=== PATIENT | female | born 1945 | race Caucasian/White ===

== ENCOUNTER 2017-03-24 09:22 | Emergency (ER) | payer MEDICAID, MEDICARE ==
[2017-03-24 09:49] VITALS: BP 196/87; PULSE 83; RESP 20; TEMP 97.8
--- NOTE | 2017-03-24 10:46 | ED ---
General Adult HPI - General Chief complaint: ENT Stated complaint: Sore Throat Time Seen by Provider: 03/24/17 09:58 Source: patient, RN notes reviewed Mode of arrival: ambulatory Limitations: no limitations - History of Present Illness Initial comments: Patient 71-year-old female who presents emergency room today with chief complaint of increased sinus congestion over the last week. Patient does admit to yellow drainage. States it's been getting worse over the last day. Some sore throat with some pressure to ears bilaterally. Patient states that is been some yellow drainage. She has mid to headache over the sinuses. Denies any other complaints or symptoms. Does admit to seasonal ALLERGIES. States appetite home. Patient denies any recent fever, chills, shortness of breath, chest pain, back pain, abdominal pain, nausea or vomiting, numbness or tingling , dysuria or hematuria, constipation or diarrhea, visual changes, or any other complaints. - Related Data Previous Rx's Medication Instructions Recorded Amoxicillin/Potassium Clav 1 each PO Q12HR #20 tab 03/24/17 [Augmentin 875-125 Tablet] Allergies Allergy/AdvReac Type Severity Reaction Status Date / Time Sulfa (Sulfonamide Allergy Unknown Verified 03/24/17 10:06 Antibiotics) Review of Systems ROS Statement: Those systems with pertinent positive or pertinent negative responses have been documented in the HPI. ROS Other: All systems not noted in ROS Statement are negative. Past Medical History Past Medical History: No Reported History History of Any Multi-Drug Resistant Organisms: None Reported Past Surgical History: Hysterectomy Past Psychological History: No Psychological Hx Reported Smoking Status: Current every day smoker Past Alcohol Use History: Rare Past Drug Use History: None Reported General Exam - General Exam Comments Initial Comments: General: The patient is awake and alert, in no distress, and does not appear acutely ill. Eye: Pupils are equal, round and reactive to light, extra-ocular movements are intact. No nystagmus. There is normal conjunctiva bilaterally. No signs of icterus. Ears, nose, mouth and throat: There are moist mucous membranes and no oral lesions. TMs clear bilaterally. Patient does have tenderness over both frontal and maxillary sinuses. Neck: The neck is supple, there is no tenderness or JVD. Cardiovascular: There is a regular rate and rhythm. No murmur, rub or gallop is appreciated. Respiratory: Lungs are clear to auscultation, respirations are non-labored, breath sounds are equal. No wheezes, stridor, rales, or rhonchi.: Musculoskeletal: Normal ROM, no tenderness. Strength 5/5. Sensation intact. Pulses equal bilaterally 2+. Neurological: A&O x 3. CN II-XII intact, There are no obvious motor or sensory deficits. Coordination appears grossly intact. Speech is normal. Skin: Skin is warm and dry and no rashes or lesions are noted. Psychiatric: Cooperative, appropriate mood & affect, normal judgment. Limitations: no limitations Course Vital Signs 03/24/17 09:46 Temperature 97.8 F Pulse Rate 83 Respiratory 20 Rate Blood Pressure 196/87 O2 Sat by Pulse 99 Oximetry Disposition Clinical Impression: Acute sinusitis Disposition: HOME SELF-CARE Condition: Good Instructions: Sinusitis (ED) Additional Instructions: Please use medication as discussed. Please follow-up with family doctor in the next 2 days of symptoms have not improved. Please return to emergency room if the symptoms increase or worsen or for any other concerns. Prescriptions: Amoxicillin/Potassium Clav [Augmentin 875-125 Tablet] 1 each PO Q12HR #20 tab Referrals: Cam Adam MD [Primary Care Provider] - 1-2 days Time of Disposition: 10:45
== END 2017-03-24 10:56 | disposition home or self-care (01) ==
LOC: EC 09:22
DX: J01.90 Acute sinusitis, unspecified (principal); F17.200 Nicotine dependence, unspecified, uncomplicated; Z88.2 Allergy status to sulfonamides
CPT/HCPCS: 99282

== ENCOUNTER → 2018-11-01 | Outpatient (CLI) | payer MEDICARE ==
[2018-11-01 10:55] LABS: Basophils # (A) 0.1 k/uL (0-0.2); Basophils % (A) 1 %; Eosinophils # (A) 0.1 k/uL (0-0.7); Eosinophils % (A) 1 %; HCT 49.2 % (34.0-46.0); HGB 15.8 gm/dL (11.4-16.0); Lymphocytes # (A) 1.4 k/uL (1.0-4.8); Lymphocytes % (A) 18 %; MCH 31.2 pg (25.0-35.0); MCHC 32.2 g/dL (31.0-37.0); MCV 96.7 fL (80.0-100.0); Mean Platelet Volume 6.8; Monocytes # (A) 0.5 k/uL (0-1.0); Monocytes % (A) 6 %; Neutrophils # (A) 5.7 k/uL (1.3-7.7); Neutrophils % (A) 73 %; Platelet Count 304 k/uL (150-450); RBC 5.09 m/uL (3.80-5.40); RDW 15.7 % (11.5-15.5); WBC 7.8 k/uL (3.8-10.6)
[2018-11-01 16:50] LABS: Albumin 4.6 g/dL (3.80-4.90); Albumin/Globulin Ratio 2.71 (1.60-3.17); Anion Gap 11.4 mmol/L (4.00-12.00); Calcium 9.6 mg/dL (8.7-10.3); Carbon Dioxide 26.6 mmol/L (21.6-31.8); Globulin 1.7 g/dL (1.6-3.3); LDL Cholesterol,Calculated 150.2 mg/dL (0.0-131.0); Potassium 4.3 mmol/L (3.5-5.5); Total Bilirubin 0.6 mg/dL (0.2-1.2); Total Protein 6.3 g/dL (6.2-8.2); VLDL Calculation 21.8 mg/dL (5.00-40.00)
[2018-11-01 16:58] LABS: T4, Free (Free Thyroxine) 1.3 ng/dL (0.80-1.80)
== END ==
LOC: LABWHC1 10:13
PROVIDERS: ATTEND Internal Medicine
DX: E78.5 Hyperlipidemia, unspecified (principal); R63.4 Abnormal weight loss; M19.90 Unspecified osteoarthritis, unspecified site
CPT/HCPCS: 36415; 80053; 80061; 84439; 84443; 85025

== ENCOUNTER 2021-03-07 17:35 | Emergency (ER) | payer MEDICARE ==
[2021-03-07 18:25] VITALS: RESP 18
--- NOTE | 2021-03-07 18:26 | ED ---
General Adult HPI <AntoniajosedoraMagdaleno rubio - Last Filed: 03/07/21 18:24> <Sam Quinonez - Last Filed: 03/07/21 23:16> - General Stated complaint: fall, wrist pain - History of Present Illness Initial comments: 75-year-old female presenting to emergency Department with a chief complaint of a fall. This occurred about 10 AM this morning. Patient reports she was getting her getting her laundry when she felt a sudden flush feeling and went onto the ground. Patient states she lost consciousness and there was a head injury on the left parietal region of the head. Patient also reports pain in the left wrist with overlying ecchymosis. Reports limited range of motion with flexion and extension due to pain. Also reports exacerbation of pain with wrist extension. She denies any associated chest finished her course of breath. Denies any blurry vision headaches, onset of weakness and paresthesias at this time. (Jorgito Cain) Patient presents to the ED for evaluation status post syncopal episode and left wrist injury at about 10 AM this morning. Patient states that she was taking some clothes out of her dryer when she became lightheaded. Patient states that she tried to get to her bench to sit down, but she had a syncopal episode and fell prior to getting there. Patient states that she thinks that she hit her head on the ground when she fell, but she denies having a headache. Patient states that she has had left wrist pain and bruising since falling this morning. Patient denies any other injury or site of pain. Patient states that she has had similar syncopal episodes in the past. Patient denies feeling lightheaded or dizzy currently. Patient denies fever or chills, headache, focal numbness/weakness/neuro deficit, visual changes, neck/back/lower extremity pain, chest pain, dyspnea, cough or cold symptoms, palpitations, abdominal pain, nausea/vomiting/diarrhea, bloody or melanotic stool, dysuria or urinary sy mptoms, or any other symptoms or complaints. Patient denies anticoagulant medication use. (Sam Quinonez) - Related Data Home Medications Medication Instructions Recorded Confirmed Acetaminophen Tab [Tylenol Tab] 500 mg PO Q6H PRN 03/07/21 03/07/21 Allergies Allergy/AdvReac Type Severity Reaction Status Date / Time Sulfa (Sulfonamide Allergy Unknown Verified 03/07/21 18:50 Antibiotics) Review of Systems ROS Other: All systems not noted in ROS Statement are negative. <AntMagdalenoo - Last Filed: 03/07/21 18:24> ROS Other: All systems not noted in ROS Statement are negative. <Sam Quinonez - Last Filed: 03/07/21 23:16> ROS Statement: Those systems with pertinent positive or pertinent negative responses have been documented in the HPI. Past Medical History Past Medical History: No Reported History History of Any Multi-Drug Resistant Organisms: None Reported Past Surgical History: Hysterectomy Past Psychological History: No Psychological Hx Reported Past Alcohol Use History: Rare Past Drug Use History: None Reported <AntJorgito - Last Filed: 03/07/21 18:24> General Exam Limitations: no limitations General appearance: alert, in no apparent distress Extremities exam: Present: tenderness (Left wrist tenderness), normal capillary refill, joint swelling (Left wrist), other (Palpable ulnar and radial pulse and laterally. Sensation intact in the left arm). Absent: normal inspection (Ecchymosis and swelling on the left wrist), full ROM (The middle range of motion with extension of the left wrist), pedal edema, calf tenderness <AntJorgito - Last Filed: 03/07/21 18:24> Limitations: no limitations General appearance: alert, in no apparent distress Head exam: Present: atraumatic, normocephalic Eye exam: Present: normal appearance, PERRL, EOMI ENT exam: Present: mucous membranes moist Neck exam: Present: other (Trachea is in midline). Absent: tenderness Respiratory exam: Present: normal lung sounds bilaterally. Absent: respiratory distress, wheezes, rales, rhonchi, stridor, chest wall tenderness Cardiovascular Exam: Present: regular rate, normal rhythm, normal heart sounds, other (Normal radial pulses bilaterally) GI/Abdominal exam: Present: soft. Absent: distended, tenderness, guarding Extremities exam: Present: other (Palpable ulnar and radial pulse and laterally. Sensation intact in the left arm. Ecchymosis and tenderness is noted over left wrist) Back exam: Present: normal inspection. Absent: tenderness Neurological exam: Present: alert, oriented X3, CN II-XII intact. Absent: motor sensory deficit Psychiatric exam: Present: normal affect, normal mood Skin exam: Present: warm, dry, intact <Sam Quinonez - Last Filed: 03/07/21 23:16> Course <Sam Quinonez - Last Filed: 03/07/21 23:16> Vital Signs 03/07/21 18:21 Temperature 98.2 F Pulse Rate 79 Respiratory 18 Rate Blood Pressure 189/80 O2 Sat by Pulse 97 Oximetry - Reevaluation(s) Reevaluation #1: 03/07/21 21:04 Case, H&P, test results and ED management thus far were discussed with Dr. Escobar. She accepts hospital admission. She agrees with cardiology and orthopedic surgery consultations. She has no further recommendations at this time. 03/07/21 23:10 I was notified by ED nursing staff that the left the ED "AMA" while I was performing a chest tube placement on another patient in the ED. I was unable to explain risks/benefits/alternatives to the patient prior to her leaving the ED, so she essentially has eloped from the ED. (Sam Quinonez) EKG Findings - EKG Comments: EKG Findings:: Normal sinus rhythm, ventricular rate of 76 bpm, no ectopy, normal IL and QRS intervals, normal QT interval, and normal axis, nonspecific ST abnormality <Sam Quinonez - Last Filed: 03/07/21 23:16> Procedures - Orthopedic Splinting/Casting Injury #1 Side: left Upper Extremity Injury Location: wrist Upper Extremity Immobilizer: sugar tong splint <Sam Quinonez - Last Filed: 03/07/21 23:16> Medical Decision Making - Lab Data Result diagrams: 03/07/21 18:47 03/07/21 18:47 - Radiology Data Radiology results: report reviewed (Noncontrast CT head and cervical spine are negative; chest x-ray: No acute cardio pulmonary process; left wrist x-rays: Mildly impacted fracture of the distal radial metadiaphysis, minimally displaced fracture of the ulnar styloid) <Sam Quinonez - Last Filed: 03/07/21 23:16> - Medical Decision Making Given the patient's syncopal episode, EKG findings and elevated troponin, I arranged for the patient to be admitted to the hospital for serial troponins, cardiac monitoring and cardiology consultation. Dr. Escobar had accepted hospital admission. While the patient was awaiting a floor bed, she eloped from the ED. Dr. Escobar was notified. Patient's left wrist fractures were splinted myself in the ED prior to her elopement. (Sam Quinonez) - Lab Data Lab Results 03/07/21 03/07/21 03/07/21 Range/Units 18:47 18:47 18:47 WBC 12.3 H (3.8-10.6) k/uL RBC 4.49 (3.80-5.40) m/uL Hgb 14.8 (11.4-16.0) gm/dL Hct 42.7 (34.0-46.0) % MCV 95.0 (80.0-100.0) fL MCH 32.9 (25.0-35.0) pg MCHC 34.6 (31.0-37.0) g/dL RDW 15.1 (11.5-15.5) % Plt Count 266 (150-450) k/uL MPV 6.3 Neutrophils % 81 % Lymphocytes % 12 % Monocytes % 5 % Eosinophils % 1 % Basophils % 1 % Neutrophils # 10.0 H (1.3-7.7) k/uL Lymphocytes # 1.4 (1.0-4.8) k/uL Monocytes # 0.6 (0-1.0) k/uL Eosinophils # 0.1 (0-0.7) k/uL Basophils # 0.1 (0-0.2) k/uL PT 9.9 (9.0-12.0) sec INR 0.9 (<1.2) APTT 20.2 L (22.0-30.0) sec Sodium 135 L (137-145) mmol/L Potassium 3.9 (3.5-5.1) mmol/L Chloride 101 (98-107) mmol/L Carbon Dioxide 27 (22-30) mmol/L Anion Gap 7 mmol/L BUN 15 (7-17) mg/dL Creatinine 0.70 (0.52-1.04) mg/dL Est GFR (CKD-EPI)AfAm >90 (>60 ml/min/1.73 sqM) Est GFR (CKD-EPI)NonAf 84 (>60 ml/min/1.73 sqM) Glucose 90 (74-99) mg/dL Calcium 9.9 (8.4-10.2) mg/dL Total Bilirubin 0.7 (0.2-1.3) mg/dL AST 36 (14-36) U/L ALT 24 (4-34) U/L Alkaline Phosphatase 78 (38-126) U/L Troponin I (0.000-0.034) ng/mL Total Protein 6.7 (6.3-8.2) g/dL Albumin 4.4 (3.5-5.0) g/dL 03/07/21 Range/Units 18:47 WBC (3.8-10.6) k/uL RBC (3.80-5.40) m/uL Hgb (11.4-16.0) gm/dL Hct (34.0-46.0) % MCV (80.0-100.0) fL MCH (25.0-35.0) pg MCHC (31.0-37.0) g/dL RDW (11.5-15.5) % Plt Count (150-450) k/uL MPV Neutrophils % % Lymphocytes % % Monocytes % % Eosinophils % % Basophils % % Neutrophils # (1.3-7.7) k/uL Lymphocytes # (1.0-4.8) k/uL Monocytes # (0-1.0) k/uL Eosinophils # (0-0.7) k/uL Basophils # (0-0.2) k/uL PT (9.0-12.0) sec INR (<1.2) APTT (22.0-30.0) sec Sodium (137-145) mmol/L Potassium (3.5-5.1) mmol/L Chloride (98-107) mmol/L Carbon Dioxide (22-30) mmol/L Anion Gap mmol/L BUN (7-17) mg/dL Creatinine (0.52-1.04) mg/dL Est GFR (CKD-EPI)AfAm (>60 ml/min/1.73 sqM) Est GFR (CKD-EPI)NonAf (>60 ml/min/1.73 sqM) Glucose (74-99) mg/dL Calcium (8.4-10.2) mg/dL Total Bilirubin (0.2-1.3) mg/dL AST (14-36) U/L ALT (4-34) U/L Alkaline Phosphatase (38-126) U/L Troponin I 0.062 H* (0.000-0.034) ng/mL Total Protein (6.3-8.2) g/dL Albumin (3.5-5.0) g/dL Disposition <Jorgito Cain - Last Filed: 03/07/21 18:24> Is patient prescribed a controlled substance at d/c from ED?: No Time of Disposition: 23:10 (Patient eloped from the ED) <Sam Quinonez - Last Filed: 03/07/21 23:16> Clinical Impression: Syncope, Elevated troponin, Left wrist fracture Disposition: Left Against Medical Advice Condition: Stable
[2021-03-07 19:00] LABS: Basophils # (A) 0.1 k/uL (0-0.2); Basophils % (A) 1 %; Eosinophils # (A) 0.1 k/uL (0-0.7); Eosinophils % (A) 1 %; HCT 42.7 % (34.0-46.0); HGB 14.8 gm/dL (11.4-16.0); Lymphocytes # (A) 1.4 k/uL (1.0-4.8); Lymphocytes % (A) 12 %; MCH 32.9 pg (25.0-35.0); MCHC 34.6 g/dL (31.0-37.0); Mean Platelet Volume 6.3; Monocytes # (A) 0.6 k/uL (0-1.0); Monocytes % (A) 5 %; Neutrophils % (A) 81 %; Platelet Count 266 k/uL (150-450); RBC 4.49 m/uL (3.80-5.40); RDW 15.1 % (11.5-15.5); WBC 12.3 k/uL (3.8-10.6)
[2021-03-07 19:11] LABS: ALT 24 U/L (4-34); AST 36 U/L (14-36); African American GFR (CKD) >90 (>60 ml/min/1.73 sqM); Albumin 4.4 g/dL (3.5-5.0); Alkaline Phosphatase 78 U/L (38-126); Anion Gap 7 mmol/L; Blood Urea Nitrogen 15 mg/dL (7-17); Calcium 9.9 mg/dL (8.4-10.2); Carbon Dioxide 27 mmol/L (22-30); Chloride 101 mmol/L (98-107); Glucose 90 mg/dL (74-99); Non-African American GFR(CKD) 84 (>60 ml/min/1.73 sqM); Potassium 3.9 mmol/L (3.5-5.1); Sodium 135 mmol/L (137-145); Total Bilirubin 0.7 mg/dL (0.2-1.3); Total Protein 6.7 g/dL (6.3-8.2)
[2021-03-07 19:22] LABS: INR 0.9 (<1.2); Prothrombin Time 9.9 sec (9.0-12.0)
[2021-03-07 19:27] LABS: Partial Thromboplastin Time 20.2 sec (22.0-30.0)
[2021-03-07] MEDS ORDERED: ASPIRIN 81 MG PO STA (19:37)
--- NOTE | 2021-03-07 19:40 | CT ---
EXAMINATION TYPE: CT brain homar tomas DATE OF EXAM: 03/07/2021 COMPARISON: None available HISTORY: fall CT DLP: 1084.5 mGycm Automated exposure control for dose reduction was used. TECHNIQUE: CT scan of the head and cervical spine are performed without contrast. Sagittal and bobby l reformatted images were obtained. FINDINGS: Head: There is no acute intracranial hemorrhage, mass effect, or midline shift identified. The ventricles and sulci are within normal limits in size. Mild burden of decreased attenuation within the perivent ricular white matter likely chronic small vessel ischemic change. Brown-white differentiation is prese rved. No CT evidence of acute large territorial. Calvarium appears intact. The globes are intact and the visualized sinuses are clear. C-spine: Cervical vertebral body heights and alignment are maintained. No acute fracture or traumatic subluxat ion. Mild multilevel degenerative disc changes most pronounced at C5-6 and C6-7 with disc height loss and osteophyte formation. Mild uncovertebral hypertrophy at C5-6 and C6-7. No significant facet arth ropathy. No significant bony spinal canal stenosis or neural foraminal narrowing. No prevertebral soft tissue swelling. Paraspinal soft tissues appear unremarkable. Nonspecific small opacity/consolidation with associated calcification in the posterior right apical lung IMPRESSION: 1. No acute intracranial process. 2. No acute fracture or traumatic subluxation of cervical spine. 3. Nonspecific small opacity/consolidation with associated calcification in the posterior right apica l lung. This is nonspecific and likely relates to chronic scarring; however, recommend correlation wi th prior imaging if available; otherwise, 3 month follow-up to ensure stability.
--- NOTE | 2021-03-07 19:43 | XR ---
EXAMINATION TYPE: XR wrist complete LT DATE OF EXAM: 03/07/2021 CLINICAL HISTORY: Fall, pain TECHNIQUE: Frontal, lateral and oblique images of the left wrist are obtained. COMPARISON: None FINDINGS: Mildly impacted transverse fracture of the distal radial metadiaphysis. Minimally displaced fracture of the ulnar styloid. Degenerative changes of the radioulnar joint; otherwise, the joint sp aces in the left wrist appear within normal limits. Mild diffuse soft tissue swelling of the wrist. IMPRESSION: 1. Mildly impacted fracture of the distal radial metadiaphysis. 2. Minimally displaced fracture of the ulnar styloid.
--- NOTE | 2021-03-07 19:53 | XR ---
EXAMINATION TYPE: XR chest 1V portable DATE OF EXAM: 03/07/2021 COMPARISON: Chest radiograph 12/16/2013 HISTORY: Wrist pain TECHNIQUE: Single frontal view of the chest is obtained. FINDINGS: Cardiomediastinal silhouette appears within normal limits. Lungs appear hyperaerated. Rede monstration of right apical opacity which is unchanged compared to 2013. No new focal consolidation, pleural effusion, or pneumothorax. Visualized osseous structures appear unremarkable. Limited views o f the upper abdomen appear normal. IMPRESSION: 1. No acute cardiopulmonary process. 2. Hyperaerated lungs, possibly due to emphysema. 3. Right apical opacity which appears similar to 2013.
[2021-03-07] MEDS ORDERED: HEPARIN SODIUM 1,000 UN/ML (10ML VL) IV ONE (20:48)
[2021-03-07] MEDS ORDERED: HEPARIN SODIUM 1,000 UN/ML (10ML VL) IV PRN (20:48)
[2021-03-07] MEDS ORDERED: HEPARIN SOD,PORK IN 0.45% NACL 25,000 UNIT in 0.45% NACL 1 250ML.BAG IV SCH (21:00)
[2021-03-08 03:03] VITALS: BP 159/88; PULSE 87; TEMP 98
== END 2021-03-07 23:10 | disposition left against medical advice (07) ==
LOC: EC 17:35 → 6NMEDSUR 21:05 → UNDOADMOB 21:05 → 3SCARD 21:47 → 6NMEDSUR 21:47 → EC 23:10
DX: S52.502A Unspecified fracture of the lower end of left radius, initial encounter for closed fracture (principal); S52.612A Displaced fracture of left ulna styloid process, initial encounter for closed fracture; R77.8 Other specified abnormalities of plasma proteins; Z88.2 Allergy status to sulfonamides; W01.198A Fall on same level from slipping, tripping and stumbling with subsequent striking against other object, initial encounter; Y93.89 Activity, other specified
CPT/HCPCS: 29125; 36415; 70450; 71045; 72125; 80053; 84484; 85025; 85610; 85730; 93005; 99284

== ENCOUNTER → 2021-03-18 | Outpatient (CLI) | payer MEDICARE ==
[2021-03-19 01:13] LABS: Chol/HDL Ratio 3.29; LDL Cholesterol,Calculated 149.4 mg/dL (0.0-131.0); VLDL Calculation 26.6 mg/dL (5.00-40.00)
== END | disposition home or self-care (01) ==
LOC: LABWHC1 08:31
PROVIDERS: ATTEND Internal Medicine Interventional Cardiology
DX: E78.2 Mixed hyperlipidemia (principal)
CPT/HCPCS: 36415; 80061; 84450; 84460

== ENCOUNTER → 2021-05-11 | Day surgery (SDC) | payer MEDICARE ==
[2021-05-07 16:23] VITALS: BMI 14.3
[~2021-05-11] MED LIST: ASPIRIN 81 MG PO SCH; ATORVASTATIN 40 MG TAB PO SCH; BENZOCAINE SPRAY 1 CAN TOPICAL ONE; DEXAMETHASONE SOD PHOSPHATE 4 MG/ML 1 ML VIAL IV ONE; HYDROmorphone 0.5 MG/0.5 ML SYRINGE IVP PRN; LACTATED RINGERS 1,000 ML IV SCH; LIDOCAINE 1% (10MG/ML) FOR IV START INTRADERMA PRN; LOSARTAN 50 MG TAB PO SCH; MIDAZOLAM 2 MG/2 ML VIAL IV ONE; ONDANSETRON 4 MG/2 ML VIAL IVP ONE; SODIUM CHLORIDE 0.9% 1,000 ML IV SCH; SODIUM CHLORIDE 0.9% 500 ML 500 ML IV ONE; fentaNYL (PF) 50 MCG/ML 2 ML AMP IV ONE; fentaNYL (PF) 50 MCG/ML 2 ML AMP ONE
[2021-05-11 10:28] VITALS: RESP 16
[2021-05-11 11:20] VITALS: BP 129/60; PULSE 62
--- NOTE | 2021-05-11 11:22 | ECHOT ---
TRANSESOPHAGEAL ECHOCARDIOGRAM INDICATION: Evaluation of mitral valve. PROCEDURE DESCRIPTION: After explaining the procedure to the patient, its risks, benefits and complications, her blood pressure, heart rate and O2 saturation were monitored. The throat was sprayed with Cetacaine. She received 2 mg intravenous Versed and 50 mcg intravenous fentanyl. The probe was introduced in the esophagus without difficulty. Images were obtained. Following that, the probe was removed. There was no immediate complication. FINDINGS: Left atrial size is mildly dilated. Left atrial appendage is normal. Left ventricular size and systolic function normal. The aortic valve is a tricuspid valve and appears to be normal. Mitral valve revealed thickening of the mitral valve leaflets with no flail leaflets. The tricuspid valve is normal. The descending thoracic aorta revealed mild atherosclerotic changes. No pericardial effusion was noted. Contrast bubble study revealed no shunting across the interatrial septum with Valsalva maneuver. Doppler, pulse wave and color Doppler were obtained and revealed moderate eccentric mitral regurgitation with moderate tricuspid regurgitation. The estimated right ventricular systolic pressure was 60 mmHg, consistent with severe pulmonary hypertension. There was no shunting by color Doppler study. CONCLUSION: 1. Mildly dilated left atrium. 2. Normal left ventricular size and systolic function. 3. Thickened mitral valve leaflets with moderate eccentric mitral regurgitation. 4. Moderate tricuspid regurgitation with severe pulmonary hypertension. 5. No evidence of shunting across the interatrial septum. 6. No pericardial effusion. MMODL / IJN: [id number] /
== END | disposition home or self-care (01) ==
LOC: CATHCVL 09:00
PROVIDERS: ATTEND Internal Medicine Interventional Cardiology
DX: I08.1 Rheumatic disorders of both mitral and tricuspid valves (principal); I27.20 Pulmonary hypertension, unspecified; Z20.822 Contact with and (suspected) exposure to COVID-19
CPT/HCPCS: 93312; 93320; 93325; 87635; J2250; J3010

== ENCOUNTER → 2021-06-01 | Outpatient (CLI) | payer MEDICARE ==
[2021-06-01 18:49] LABS: ALT 28 U/L (8-44); AST 30 U/L (13-35); Chol/HDL Ratio 2.43 Ratio; LDL Cholesterol,Calculated 77.1 mg/dL (0.0-131.0)
== END | disposition home or self-care (01) ==
LOC: LABWHC1 10:00
PROVIDERS: ATTEND Nurse Practitioner Adult Health
DX: E78.2 Mixed hyperlipidemia (principal)
CPT/HCPCS: 36415; 80061; 84450; 84460

== ENCOUNTER → 2021-12-07 | Outpatient (CLI) | payer MEDICARE ==
--- NOTE | 2021-12-07 18:11 | BD ---
EXAMINATION TYPE: Axial Bone Density DATE OF EXAM: 12/07/2021 COMPARISON: NONE CLINICAL HISTORY: 75 years year old Female. ICD-10 CODE: Z78.0 post menopausal without HRT Height: 63 IN Weight: 82 LBS FRAX RISK QUESTIONS: History of Fracture in Adulthood: RT WRIST AGE 75, LT WRIST AGE 34 Secondary Osteoporosis: 3. Menopause before 45: PARTIAL HYST AGE 34 Current Tobacco Use: YES RISK FACTORS HISTORY OF: History of Wrist Fracture: YES When: RT WRIST AGE 75; LT WRIST AGE 34 Active: LIMITED Diet low in dairy products/other sources of calcium: YES Postmenopausal woman: PARTIAL HYST AGE 34 Take estrogen and/or progesterone medications: NOT NOW How lon YEARS MEDICATIONS: Additional Medications: BLOOD PRESSURE MEDS EXAM MEASUREMENTS: Bone mineral densitometry was performed using the [facility]. Bone mineral density as measured about the Lumbar spine is: ----- L1-L4(G/cm2): 0.893 T Score Values are as follows: ----- L1: -2.1 ----- L2: -2.4 ----- L3: -2.1 ----- L4: -3.0 ----- L1-L4: -2.4 Bone mineral density BASELINE Bone mineral density about the R hip (g/cm2): 0.663 Bone mineral density about the L hip (g/cm2): 0.569 T Score values are as follows: -----R Neck: -2.7 -----L Neck: -3.4 -----R Total: -3.0 -----L Total: -3.2 Bone mineral density BASELINE FRAX%s: The graph provided illustrates a 29.8 chance for a major osteoporotic fx and a 18.8 chance fo r the hips probability for fx in 10 years time. IMPRESSION: Osteoporosis (T Score less than -2.5). There is increased fracture risk and therapy is usually indicated based on age. Re-Screen 1-2 years. NOTE: T-SCORE=SD OF THE YOUNG ADULT MEAN.
== END | disposition home or self-care (01) ==
LOC: RADBDWWP 12:45
PROVIDERS: ATTEND Internal Medicine
DX: Z78.0 Asymptomatic menopausal state (principal)
CPT/HCPCS: 77080

== ENCOUNTER → 2022-05-03 | Outpatient (CLI) | payer MEDICARE ==
[2022-05-03 14:17] LABS: HCT 46.8 % (37.2-46.3); HGB 13.9 g/dL (12.0-15.0); MCH 24.4 pg (27.0-32.0); MCHC 29.7 g/dL (32.0-37.0); MCV 82.1 fL (80.0-97.0); Mean Platelet Volume 9.3 fL (9.5-12.2); NRBC Per 100 WBC 0 /100 WBCS (0.0-0.0); Platelet Count 321 X 10*3/uL (140-440); RDW 24.2 % (11.5-14.5); WBC 7.02 X 10*3/uL (4.50-10.00)
[2022-05-03 14:43] LABS: ALT 21 U/L (8-44); AST 30 U/L (13-35); African American GFR (CKD) 62.9 (60.0-200.0); Albumin 4.7 g/dL (3.8-4.9); Albumin/Globulin Ratio 1.62 (1.60-3.17); Alkaline Phosphatase 99 U/L (41-126); Blood Urea Nitrogen 14.9 mg/dL (9.0-27.0); Calcium 10.1 mg/dL (8.7-10.3); Carbon Dioxide 25.7 mmol/L (20.0-27.5); Chloride 102 mmol/L (96-109); Globulin 2.9 g/dL (1.6-3.3); Glucose 113 mg/dL (70-110); Non-African American GFR(CKD) 54.3 (60.0-200.0); Potassium 4.3 mmol/L (3.5-5.5); Sodium 141 mmol/L (135-145); Total Protein 7.6 g/dL (6.2-8.2)
[2022-05-03 14:44] LABS: Chol/HDL Ratio 3.56 Ratio; LDL Cholesterol,Calculated 170.3 mg/dL (0.0-131.0)
== END | disposition home or self-care (01) ==
LOC: LABWHC1 10:39
PROVIDERS: ATTEND Internal Medicine Interventional Cardiology
DX: I10 Essential (primary) hypertension (principal); E78.2 Mixed hyperlipidemia; Z79.899 Other long term (current) drug therapy
CPT/HCPCS: 36415; 80053; 80061; 83036; 84443; 85027

== ENCOUNTER → 2022-11-01 | Outpatient (CLI) | payer MEDICARE ==
[2022-11-01 16:11] LABS: HGB 14.5 g/dL (12.0-15.0); MCH 28.4 pg (27.0-32.0); MCHC 30.9 g/dL (32.0-37.0); Mean Platelet Volume 8.7 fL (9.5-12.2); NRBC Per 100 WBC 0 /100 WBCS (0.0-0.0); Platelet Count 241 X 10*3/uL (140-440); RBC 5.11 X 10*6/uL (4.10-5.20); RDW 17.9 % (11.5-14.5); WBC 7.47 X 10*3/uL (4.50-10.00)
[2022-11-01 16:33] LABS: ALT 31 U/L (8-44); AST 37 U/L (13-35); African American GFR (CKD) 82.4 (60.0-200.0); Albumin/Globulin Ratio 2.27 (1.60-3.17); Alkaline Phosphatase 100 U/L (41-126); BUN/Creat Ratio 19.88 Ratio (12.00-20.00); Blood Urea Nitrogen 15.9 mg/dL (9.0-27.0); Calcium 10.2 mg/dL (8.7-10.3); Carbon Dioxide 26.6 mmol/L (20.0-27.5); Chloride 103 mmol/L (96-109); Chol/HDL Ratio 2.49 Ratio; Globulin 2.2 g/dL (1.6-3.3); Glucose 110 mg/dL (70-110); LDL Cholesterol,Calculated 98.9 mg/dL (0.0-131.0); Non-African American GFR(CKD) 71.1 (60.0-200.0); Potassium 4.6 mmol/L (3.5-5.5); Sodium 144 mmol/L (135-145); Total Protein 7.2 g/dL (6.2-8.2)
== END | disposition home or self-care (01) ==
LOC: LABWHC1 10:40
PROVIDERS: ATTEND Internal Medicine Interventional Cardiology
DX: I10 Essential (primary) hypertension (principal); E78.2 Mixed hyperlipidemia; R73.01 Impaired fasting glucose
CPT/HCPCS: 36415; 80053; 80061; 83036; 84443; 85027

== ENCOUNTER → 2023-03-28 | Outpatient (CLI) | payer MEDICARE ==
[2023-03-28 16:56] LABS: ALT 36 U/L (8-44); AST 34 U/L (13-35); Albumin 4.9 d/dL (3.8-4.9); Albumin/Globulin Ratio 2.45 Ratio (1.60-3.17); Alkaline Phosphatase 93 U/L (41-126); Blood Urea Nitrogen 18.1 mg/dL (9.0-27.0); Calcium 10.4 mg/dL (8.7-10.3); Carbon Dioxide 29.2 mmol/L (21.6-31.8); Chloride 102 mmol/L (96-109); Chol/HDL Ratio 2.46 Ratio; Glucose 101 mg/dL (70-110); LDL Cholesterol,Calculated 91.7 mg/dL (0.0-131.0); Potassium 4.9 mmol/L (3.5-5.5); Sodium 143 mmol/L (135-145); Total Bilirubin 0.6 mg/dL (0.3-1.2); Total Protein 6.9 d/dL (6.2-8.2)
== END | disposition home or self-care (01) ==
LOC: LABWHC1 11:59
PROVIDERS: ATTEND Nurse Practitioner Adult Health
DX: I10 Essential (primary) hypertension (principal); E78.2 Mixed hyperlipidemia
CPT/HCPCS: 36415; 80053; 80061

== ENCOUNTER → 2023-11-02 | Outpatient (CLI) | payer MEDICARE ==
[2023-11-02 16:07] LABS: HCT 51.4 % (37.2-46.3); HGB 16.5 g/dL (12.0-15.0); MCH 31.1 pg (27.0-32.0); MCHC 32.1 g/dL (32.0-37.0); Mean Platelet Volume 9.4 FL (9.5-12.2); NRBC Per 100 WBC 0 X 10*3/uL (0.00-0.01); Platelet Count 229 X 10*3/uL (140-440); RDW 15.3 % (11.5-14.5); WBC 8.18 X 10*3/uL (4.50-10.00)
[2023-11-02 16:39] LABS: ALT 29 U/L (8-44); AST 34 U/L (13-35); Albumin 4.7 g/dL (3.8-4.9); Albumin/Globulin Ratio 1.96 Ratio (1.60-3.17); Alkaline Phosphatase 97 U/L (41-126); BUN/Creat Ratio 21.12 Ratio (12.00-20.00); Blood Urea Nitrogen 16.9 mg/dL (9.0-27.0); Calcium 10.5 mg/dL (8.7-10.3); Carbon Dioxide 26.4 mmol/L (21.6-31.8); Chloride 102 mmol/L (96-109); Chol/HDL Ratio 2.58 Ratio; Globulin 2.4 g/dL (1.6-3.3); Glucose 115 mg/dL (70-110); LDL Cholesterol,Calculated 104.4 mg/dL (0.0-131.0); Potassium 4.3 mmol/L (3.5-5.5); Sodium 142 mmol/L (135-145); Total Bilirubin 0.6 mg/dL (0.3-1.2); Total Protein 7.1 g/dL (6.2-8.2)
== END | disposition home or self-care (01) ==
LOC: LABWHC1 13:08
PROVIDERS: ATTEND Internal Medicine Interventional Cardiology
DX: I10 Essential (primary) hypertension (principal); E78.2 Mixed hyperlipidemia; M81.0 Age-related osteoporosis without current pathological fracture; Z79.899 Other long term (current) drug therapy
CPT/HCPCS: 36415; 80053; 80061; 82306; 84443; 85027

== ENCOUNTER → 2024-04-15 | Outpatient (CLI) | payer MEDICARE ==
[2024-04-15 19:01] LABS: ALT 34 U/L (8-44); AST 36 U/L (13-35); Chol/HDL Ratio 2.66 Ratio; LDL Cholesterol,Calculated 114.7 mg/dL (0.0-131.0)
== END | disposition home or self-care (01) ==
LOC: LABWHC1 12:20
PROVIDERS: ATTEND Nurse Practitioner Adult Health
DX: E78.2 Mixed hyperlipidemia (principal)
CPT/HCPCS: 36415; 80061; 84450; 84460

== ENCOUNTER → 2025-01-02 | Outpatient (CLI) | payer MEDICARE ==
[2025-01-02 19:51] LABS: ALT 45 U/L (8-44); AST 39 U/L (13-35); Albumin 4.3 g/dL (3.8-4.9); Albumin/Globulin Ratio 1.95 Ratio (1.60-3.17); Alkaline Phosphatase 92 U/L (41-126); BUN/Creat Ratio 21.11 Ratio (12.00-20.00); Calcium 9.7 mg/dL (8.7-10.3); Carbon Dioxide 28.5 mmol/L (21.6-31.8); Chloride 106 mmol/L (96-109); Globulin 2.2 g/dL (1.6-3.3); Glucose 115 mg/dL (70-110); LDL Cholesterol,Calculated 97.9 mg/dL (0.0-131.0); Potassium 4.4 mmol/L (3.5-5.5); Sodium 147 mmol/L (135-145); Total Bilirubin 0.5 mg/dL (0.3-1.2); Total Protein 6.5 g/dL (6.2-8.2)
== END | disposition home or self-care (01) ==
LOC: LABWHC1 14:09
PROVIDERS: ATTEND Internal Medicine Interventional Cardiology
DX: E78.2 Mixed hyperlipidemia (principal)
CPT/HCPCS: 36415; 80053; 80061